=== PATIENT | male | born 1995 | race Caucasian/White ===

== ENCOUNTER 2016-10-27 11:43 | Emergency (ER) | payer OTHER ==
[~2016-10-27] VITALS: Ht 170.2 cm; Wt 94.2 kg
[2016-10-27 14:10] VITALS: BP 132/81
== END 2016-10-27 14:12 | disposition home or self-care (01) ==
LOC: EME 11:43
PROC: 3E0234Z Introduction of Serum, Toxoid and Vaccine into Muscle, Percutaneous Approach (ICD-10-PCS; principal; 2016-10-27)
DX: S09.8XXA Other specified injuries of head, initial encounter (principal); S00.81XA Abrasion of other part of head, initial encounter; W20.8XXA Other cause of strike by thrown, projected or falling object, initial encounter; Y99.0 Civilian activity done for income or pay; Z23 Encounter for immunization; Z87.891 Personal history of nicotine dependence
CPT/HCPCS: 99281; 99284